=== PATIENT | female | born 1995 | race Caucasian/White ===

== ENCOUNTER 2018-12-13 11:38 | Emergency (ER) | payer BC ==
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
[2018-12-13 13:19] VITALS: BP 120/86
== END 2018-12-13 13:17 | disposition home or self-care (01) ==
DX: R06.02 Shortness of breath (principal); R42 Dizziness and giddiness; R11.0 Nausea
CPT/HCPCS: 80305